=== PATIENT | male | born 1965 | race Caucasian/White ===

== ENCOUNTER 2017-08-11 17:24 | Emergency (ER) | payer SELFPAY ==
[2017-08-11] MEDS ORDERED: Metoclopramide HCl 10 MG/2 ML VIAL ONE (18:23)
[2017-08-11] MEDS ORDERED: diphenhydrAMINE 50 MG/ML VIAL ONE (18:23)
[2017-08-11] MEDS ORDERED: Ketorolac Tromethamine 30 MG/ML VIAL ONE (18:23)
[2017-08-11 18:30] LABS: #Lymphocytes 1.2 thou/uL (1.20-3.40); #Neutrophils 6.8 thou/uL (1.40-6.50); %Basophils 0.3 % (0.0-1.0); %Eosinophils 0.4 % (0.0-10.0); %Lymphocytes 13.6 % (21.0-51.0); %Monocytes 10.6 % (0.0-10.0); %Neutrophils 75.1 % (42.0-75.0); Hemoglobin 15.6 g/dL (14.0-18.0); Mean Corpuscular HGB CONC 33.6 g/dL (32.0-36.0); Mean Corpuscular Hemoglobin 28.3 pg (27.0-31.0); Mean Corpuscular Volume 84.3 fl (80.0-94.0); Mean Platelet Volume 6.8 fL (7.4-10.4); Platelet Count 274 thou/uL (130-400); RBC Distribution Width 13.4 % (11.5-14.5); Red Blood Cell (RBC) Count 5.51 mill/uL (4.70-6.10); White Blood Cell (WBC) Count 9.1 thou/uL (4.8-10.8)
[2017-08-11 18:52] LABS: ALT (SGPT) 25 U/L (8-55); AST (SGOT) 21 U/L (5-34); Albumin 3.7 g/dL (3.5-5.0); Alkaline Phosphatase 68 U/L (40-150); Anion Gap 15 mmol/L (10-20); BUN (Urea Nitrogen) 12 mg/dL (8.4-25.7); Bilirubin, Total 0.3 mg/dL (0.2-1.2); Calc. Creatinine Clearance 0 mL/min (70-130); Calcium 8.8 mg/dL (7.8-10.44); Carbon Dioxide 22 mmol/L (22-29); Chloride 104 mmol/L (98-107); Estimated GFR-MDRD 82; Globulin 2.4 g/dL (2.4-3.5); Glucose 121 mg/dL (70-105); Protein, Total 6.1 g/dL (6.0-8.3); Sodium 137 mmol/L (136-145)
--- NOTE | 2017-08-11 19:58 | RAD ---
PORTABLE CHEST: History: Fever. Flu symptoms. Comparison: None. FINDINGS: There are increased interstitial markings in the mid and lower lung ramos. This could represent an i nterstitial infiltrate, possibly viral, given history of flu symptoms. No confluent alveolar consolid ation. No effusion. Heart size is within normal range. IMPRESSION: Increased interstitial markings in the mid and lower lung. An interstitial inflammatory process canno t be excluded. POS: [facility]
--- NOTE | 2017-08-17 22:42 | EKG ---
Test Reason : Blood Pressure : / mmHG Vent. Rate : 112 BPM Atrial Rate : 112 BPM P-R Int : 124 ms QRS Dur : 102 ms QT Int : 344 ms P-R-T Axes : 047 086 004 degrees QTc Int : 469 ms Sinus tachycardia T wave abnormality, consider inferior ischemia Abnormal ECG Confirmed by TAIWO HINOJOSA ([id number]), editor managing director DORA MUNSON ([id number]) on 08/17/2017 10:41:10 PM Referred By: Confirmed By:TAIWO HINOJOSA
== END 2017-08-11 19:30 | disposition home or self-care (01) ==
LOC: ERS 17:24
DX: J11.1 Influenza due to unidentified influenza virus with other respiratory manifestations (principal); F17.210 Nicotine dependence, cigarettes, uncomplicated
CPT/HCPCS: 36415; 71045; 80053; 83735; 85025; 93005; 96361; 96374; 96375; J1200; J1885; J2765

== ENCOUNTER 2017-08-27 14:13 | Emergency (ER) | payer SELFPAY ==
--- NOTE | 2017-08-27 15:38 | RAD ---
LEFT KNEE 4 VIEWS: Date: 08/27/17 HISTORY: 52-year-old male with history of knee pain. IMPRESSION: No fracture, dislocation, or other significant acute osseous abnormality. POS: [facility]
[2017-08-27] MEDS ORDERED: Ketorolac Tromethamine 30 MG/ML VIAL ONE (15:44)
== END 2017-08-27 16:03 | disposition home or self-care (01) ==
LOC: ERS 14:13
DX: S83.92XA Sprain of unspecified site of left knee, initial encounter (principal); W08.XXXA Fall from other furniture, initial encounter; F17.210 Nicotine dependence, cigarettes, uncomplicated
CPT/HCPCS: 96372; J1885

== ENCOUNTER 2017-09-24 10:00 | Outpatient (CLI) | payer OTHER | END 2017-09-24 10:01 | disposition home or self-care (01) | LOC: BICMRI 10:00 | PROVIDERS: ATTEND Family Medicine | DX: S86.912A Strain of unspecified muscle(s) and tendon(s) at lower leg level, left leg, initial encounter (principal); M25.462 Effusion, left knee ==

== ENCOUNTER 2017-11-15 14:28 | Outpatient (CLI) | payer OTHER ==
[2017-11-15 15:12] LABS: #Eosinphils 0.2 thou/uL (0.0-0.7); #Lymphocytes 1.9 thou/uL (1.20-3.40); #Monocytes 0.5 thou/uL (0.11-0.59); #Neutrophils 5.1 thou/uL (1.40-6.50); %Basophils 0.5 % (0.0-1.0); %Lymphocytes 24.4 % (21.0-51.0); %Monocytes 5.9 % (0.0-10.0); %Neutrophils 67.2 % (42.0-75.0); Mean Corpuscular HGB CONC 34.4 g/dL (32.0-36.0); Mean Corpuscular Hemoglobin 28.6 pg (27.0-31.0); Mean Corpuscular Volume 83.1 fl (80.0-94.0); Mean Platelet Volume 7.4 fL (7.4-10.4); Platelet Count 289 thou/uL (130-400); RBC Distribution Width 13.3 % (11.5-14.5); White Blood Cell (WBC) Count 7.6 thou/uL (4.8-10.8)
[2017-11-15 15:28] LABS: Anion Gap 13 mmol/L (10-20); BUN (Urea Nitrogen) 11 mg/dL (8.4-25.7); Calc. Creatinine Clearance 0 mL/min (70-130); Calcium 9.2 mg/dL (7.8-10.44); Carbon Dioxide 23 mmol/L (22-29); Chloride 107 mmol/L (98-107); Estimated GFR-MDRD 84; Glucose 136 mg/dL (70-105); Potassium 4.4 mmol/L (3.5-5.1); Sodium 139 mmol/L (136-145)
--- NOTE | 2017-11-18 13:24 | EKG ---
Test Reason : Blood Pressure : / mmHG Vent. Rate : 090 BPM Atrial Rate : 090 BPM P-R Int : 134 ms QRS Dur : 100 ms QT Int : 354 ms P-R-T Axes : 045 086 010 degrees QTc Int : 433 ms Normal sinus rhythm Incomplete right bundle branch block Borderline ECG Confirmed by MAAGLI GIVENS ([id number]) on 11/18/2017 1:24:03 PM Referred By: IERO Confirmed By:MAGALI GIVENS
== END 2017-11-15 14:29 | disposition home or self-care (01) ==
LOC: LABBT 14:28
PROVIDERS: ATTEND Orthopaedic Surgery
DX: Z01.818 Encounter for other preprocedural examination (principal); M25.862 Other specified joint disorders, left knee
CPT/HCPCS: 80048; 85025; 93005; 93010

== ENCOUNTER 2017-11-18 05:52 | Day surgery (SDC) | payer OTHER ==
[2017-11-15 14:50] VITALS: BMI 37.4
[2017-11-18] MEDS ORDERED: Fentanyl 100 MCG/2 ML VIAL ONE (06:36)
[2017-11-18] MEDS ORDERED: PROPOFOL 20 ML ONE (06:51)
[2017-11-18] MEDS ORDERED: CEFAZOLIN/Water 2 GM/20 ML SYRINGE ONE (06:53)
--- NOTE | 2017-11-18 09:26 | OP ---
DATE OF PROCEDURE: 11/18/2017 PREOPERATIVE DIAGNOSIS: Left knee chondral loose body. POSTOPERATIVE DIAGNOSES: 1. Left knee chondral loose body. 2. 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 PROCEDURE: 1. Left knee arthroscopy with debridement and shaving of trochlea 2. Removal of chondral loose body greater than 1 cm from left knee SURGEON: Carrillo Arias M.D. HAND I THERMAL CUTTER: None. BLOOD LOSS: Minimal. COMPLICATIONS: None. ANESTHESIA: He had general anesthetic as well as a local knee block. DISPOSITION: He did go to the recovery room in stable condition. INDICATIONS: A 52-year-old male who comes in complaining of pain and inability to do range of motion of his knee secondary to a loose body found on MRI scan. At this time, surgery was decided upon for this problem. After all appropriate consent forms were explained and signed, Saud was taken to the operating room and at this time was given general anesthetic. Once local anesthesia was appropriate, the tourniquet was placed on the left thigh and the leg was then prepped and draped in the standard surgical fashion. The limb was then exsanguinated and the tourniquet was taken to 300 mmHg. An inferolateral portal was established and the scope was placed into the knee joint. A needle localization technique was then used to make a medial working portal. Diagnostic arthroscopy commenced in the notch. ACL and PCL probed and found to be intact. The medial compartment was then evaluated. Meniscus was intact. The femur and tibia were intact. While shaving in the medial compartment just to make sure there were no loose bodies underneath the medial meniscus, a large chondral body floated into the medial compartment. It measured 1.5 cm or so in diameter and this was eaten up by the shaver. We then went to the lateral compartment and found the same thing where the femur and tibia, and lateral meniscus were in good condition. The gutters were evaluated and were clean. The patellofemoral joint was then evaluated from both medial and lateral portal. The patella was in good condition. The trochlea; however, had a large area with some acute chondral injury with some large unstable chondral flaps still left. These were all taken down using a biter and shaver to a 90 degree wall. Once there was no more loose cartilage flaps we did go through the knee one more time making sure there were no more loose chondral bodies and there were none. The scope at this time was removed, knee was drained, and portals were closed with simple nylon stitch. Bulky sterile dressing was applied and the tourniquet let down, and the toes pinked up nicely. The patient was then awakened. He was taken to the recovery room in stable condition. All counts were correct at the end of the case and he did receive preoperative IV antibiotics. JAILENE
[2017-11-18] MEDS ORDERED: Lidocaine 2% w/Epinephrine 1:200K 20 ML VIAL ONE (14:56)
[2017-11-18] MEDS ORDERED: Bupivacaine HCl 0.5%/Epinephrine 1:200,000/PF 30 ml Vial ONE (14:56)
[2017-11-18] MEDS ORDERED: PROPOFOL 200 MG/20 ML VIAL ONE (15:27)
[2017-11-18] MEDS ORDERED: Lidocaine 1% PF 5 ML VIAL ONE (15:27)
== END 2017-11-18 10:05 | disposition home or self-care (01) ==
LOC: SDC 05:52
PROVIDERS: ATTEND Orthopaedic Surgery
PROC: 0SCD4ZZ Extirpation of Matter from Left Knee Joint, Percutaneous Endoscopic Approach (ICD-10-PCS; principal; 2017-11-18)
DX: M23.42 Loose body in knee, left knee (principal); M94.262 Chondromalacia, left knee
CPT/HCPCS: J0670; J2001; J2704; J3010

== ENCOUNTER 2018-02-17 09:20 | Inpatient (IN) | payer SELFPAY ==
[2018-02-17] MEDS ORDERED: Morphine 4 MG/ML VIAL ONE (09:58)
[2018-02-17] MEDS ORDERED: Nitroglycerin 2% Ointment 1 INCH/1 GM Packet ONE ×2 (09:58→12:51)
[2018-02-17 10:01] LABS: #Basophils 0.1 thou/uL (0.0-0.2); #Eosinphils 0.1 thou/uL (0.0-0.7); #Lymphocytes 1.6 thou/uL (1.20-3.40); #Monocytes 0.4 thou/uL (0.11-0.59); #Neutrophils 3.3 thou/uL (1.40-6.50); %Basophils 1.1 % (0.0-1.0); %Eosinophils 1.6 % (0.0-10.0); %Lymphocytes 30.4 % (21.0-51.0); %Monocytes 6.5 % (0.0-10.0); %Neutrophils 60.4 % (42.0-75.0); Hemoglobin 16.3 g/dL (14.0-18.0); Mean Corpuscular HGB CONC 34.9 g/dL (32.0-36.0); Mean Corpuscular Hemoglobin 28.9 pg (27.0-31.0); Mean Corpuscular Volume 82.8 fL (78.0-98.0); Mean Platelet Volume 8.3 fL (7.4-10.4); Platelet Count 206 thou/uL (130-400); RBC Distribution Width 13.9 % (11.5-14.5); Red Blood Cell (RBC) Count 5.63 mill/uL (4.70-6.10); White Blood Cell (WBC) Count 5.4 thou/uL (4.8-10.8)
[2018-02-17 10:24] LABS: Troponin I 0.035 ng/mL (< 0.028)
--- NOTE | 2018-02-17 10:36 | RAD ---
CHEST ONE VIEW: History: Chest pain, shortness of breath. Comparison: 08-11-17 FINDINGS: Mild increased to mediastinal fat, chronic finding. The interstitial opacities in both lung bases are again seen, similar. No pneumothorax. Cardiac silhouette and mediastinal contours are similar. IMPRESSION: Similar appearance of mild increased interstitial markings in both lung bases. This may reflect a rec urrent atypical infection versus scarring. POS: [facility]
[2018-02-17 11:38] LABS: Bilirubin Negative (Negative); Blood, Urine Negative (Negative); Glucose, Urine (Dipstick) Negative (Negative); Nitrite Negative (Negative); Protein, Urine (Dipstick) Negative (Neg-Trace); Urobilinogen 0.2 mg/dL (0.2-1.0)
[2018-02-17 11:40] LABS: Clarity Hazy (Clear)
[2018-02-17 11:46] LABS: Bacteria/HPF None Seen HPF (None Seen); Hyaline Casts/LPF 0-3 HYALINE CAST LPF (0-3 Hyaline); RBC/HPF 0-3 HPF (0-3); Squamous Epithelial None Seen HPF (0-3); WBC/HPF None Seen HPF (0-3)
[2018-02-17 11:59] LABS: Crystals/HPF None Seen HPF (Negative); Leukocyte Negative (Negative)
[2018-02-17] MEDS ORDERED: Enoxaparin Sodium 100 MG/ML SYRINGE ONE (12:04)
[2018-02-17 12:12] LABS: ALT (SGPT) 28 U/L (8-55); AST (SGOT) 28 U/L (5-34); Albumin 4.5 g/dL (3.5-5.0); Alkaline Phosphatase 84 U/L (40-150); Anion Gap 16 mmol/L (10-20); BUN (Urea Nitrogen) 12 mg/dL (8.4-25.7); Bilirubin, Total 0.6 mg/dL (0.2-1.2); CK (CPK) 512 U/L (30-200); Calc. Creatinine Clearance 0 mL/min (70-130); Calcium 9.8 mg/dL (7.8-10.44); Carbon Dioxide 20 mmol/L (22-29); Chloride 106 mmol/L (98-107); Estimated GFR-MDRD 85; Globulin 3.2 g/dL (2.4-3.5); Glucose 107 mg/dL (70-105); Lipase 19 U/L (8-78); Magnesium 2.2 mg/dL (1.6-2.6); Potassium 3.8 mmol/L (3.5-5.1); Protein, Total 7.7 g/dL (6.0-8.3); Sodium 138 mmol/L (136-145)
[2018-02-17] MEDS ORDERED: Nitroglycerin 0.4 MG TAB (25 Tab Bottle) SL PRN (12:16)
[2018-02-17] MEDS ORDERED: Acetaminophen 325 MG TAB PO PRN (12:16)
[2018-02-17] MEDS ORDERED: Ondansetron HCl/PF 4 MG/2 ML Vial IVP PRN (12:16)
[2018-02-17] MEDS ORDERED: Nitroglycerin 0.4 MG TAB (25 Tab Bottle) PO PRN (12:16)
[2018-02-17] MEDS ORDERED: Ondansetron ODT 4 MG TAB PO PRN (12:16)
[2018-02-17] MEDS ORDERED: Nitroglycerin 50 MG/250 ML BOT 0 ML ONE ×2 (13:12→13:25)
[2018-02-17] MEDS ORDERED: Nitroglycerin 50 MG/250 ML BOT 250 ML IVPB SCH (13:15)
[2018-02-17 13:28] LABS: CKMB 4.9 ng/mL (0-6.6)
[2018-02-17 13:30] LABS: Troponin I 0.559 ng/mL (< 0.028)
--- NOTE | 2018-02-17 13:37 | PDOC.FPRHP ---
- History of Present Illness Chief Complaint: chest pain History of Present Illness: 52 yo M w/o known PMH presents to ED for acute onset chest pain with associated sob and diaphoresis. Pt reports the chest pain is substernal with radiation to the left chest, described as sharp in nature and was walking at symptom onset. 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 Initial chest pain rated 10/10 and currently 2/10 after nitro, aspirin and morphine. Currently denies diaphoresis, sob and N/V. ED Course: Nitropaste 3in, nitro drip, Ther lovenox, asa 324 mg, 4mg morphine - Allergies/Adverse Reactions Allergies Allergy/AdvReac Type Severity Reaction Status Date / Time No Known Allergies Allergy Verified 11/15/17 14:49 - Home Medications Medication Instructions Recorded Confirmed Type Mdrive 1 cap PO QAM 11/15/17 11/15/17 History - History PMHx:No known PSHx: arthroscopy knee FHx:paternal HI and CABG, maternal HTN DMII Social: 25 pack year smoking history, occasional alcohol use, denies drug use - Review of Systems General: denies: fever/chills, night sweats Eyes: denies: vision changes ENT: denies: nasal congestion, rhinorrhea Respiratory: reports: shortness of breath, exercise intolerance. denies: cough , congestion Cardiovascular: reports: chest pain. denies: palpitation, edema Gastrointestinal: denies: nausea, vomiting, diarrhea, constipation, abdominal pain Genitourinary: denies: incontinence, dysuria Skin: denies: rashes, lesions Musculoskeletal: reports: arthritis/arthralgias. denies: pain, tenderness Neurological: denies: numbness, syncope, weakness Psychological: denies: anxiety - Vital signs BP: 118/77 HR: 90 RR: 18 Tmax: 98.6 Pox: 97% on RA Wt: 109Kg - Physical Exam Constitutional: awake, alert and oriented, other (Mildly distressed) HEENT: normocephalic and atraumatic, PERRLA, EOMI, conjunctiva clear, no scleral icterus, grossly normal vision, grossly normal hearing, MMM, oropharynx clear Neck: supple, trachea midline, no LAD, no JVD Chest: other (TTP) Heart: RRR, normal S1/S2, no murmurs/rubs/gallops, pulses present, no edema Lungs: CTAB, no respiratory distress, good air movement, no rales/rhonchi, no wheezing, no retractions Abdomen: soft, non-tender, bowel sounds present, no masses/distention Musculoskeletal: normal structure, normal tone, ROM grossly normal Neurological: no focal deficit Skin: capillary refill <2 seconds, no jaundice Heme/Lymphatic: no unusual bruising or bleeding, no purpura, no petechia Psychiatric: normal mood and affect FMR H&P: Results - Labs Result Diagrams: 02/17/18 09:53 02/17/18 10:13 Lab results: WBC 5.4 thou/uL (4.8-10.8) 02/17/18 09:53 Hgb 16.3 g/dL (14.0-18.0) 02/17/18 09:53 Hct 46.6 % (42.0-52.0) 02/17/18 09:53 MCV 82.8 fL (78.0-98.0) 02/17/18 09:53 Plt Count 206 thou/uL (130-400) 02/17/18 09:53 Neutrophils % 60.4 % (42.0-75.0) 02/17/18 09:53 Sodium 138 mmol/L (136-145) 02/17/18 10:13 Potassium 3.8 mmol/L (3.5-5.1) 02/17/18 10:13 Chloride 106 mmol/L (98-107) 02/17/18 10:13 Carbon Dioxide 20 mmol/L (22-29) L 02/17/18 10:13 BUN 12 mg/dL (8.4-25.7) 02/17/18 10:13 Creatinine 0.94 mg/dL (0.6-1.3) 02/17/18 10:13 Glucose 107 mg/dL (70-105) H 02/17/18 10:13 Calcium 9.8 mg/dL (7.8-10.44) 02/17/18 10:13 Total Bilirubin 0.6 mg/dL (0.2-1.2) 02/17/18 10:13 AST 28 U/L (5-34) 02/17/18 10:13 ALT 28 U/L (8-55) 02/17/18 10:13 Alkaline Phosphatase 84 U/L (40-150) 02/17/18 10:13 Creatine Kinase 512 U/L (30-200) H 02/17/18 10:13 CK-MB (CK-2) 4.9 ng/mL (0-6.6) 02/17/18 12:55 Serum Total Protein 7.7 g/dL (6.0-8.3) 02/17/18 10:13 Albumin 4.5 g/dL (3.5-5.0) 02/17/18 10:13 Lipase 19 U/L (8-78) 02/17/18 10:13 Urine Ketones Negative mg/dL (Negative) 02/17/18 10:54 Urine Blood Negative (Negative) 02/17/18 10:54 Urine Nitrite Negative (Negative) 02/17/18 10:54 Ur Leukocyte Esterase Negative (Negative) 02/17/18 10:54 Urine RBC 0-3 HPF (0-3) 02/17/18 10:54 Urine WBC None Seen HPF (0-3) 02/17/18 10:54 Ur Squamous Epith Cells None Seen HPF (0-3) 02/17/18 10:54 Urine Bacteria None Seen HPF (None Seen) 02/17/18 10:54 - EKG Interpretation EKG: Incomplete RBBB, unchanged from prior EKG, rate 90 - Radiology Interpretation Chest x-ray Status: report reviewed by me (Interstitial opacities, unchanged from prior. Atypical infiltrate vs chronic scarring.) FMR H&P: A/P - Problem List (1) Unstable angina Current Visit: Yes Status: Acute (2) NSTEMI (non-ST elevated myocardial infarction) Current Visit: Yes Status: Acute Code(s): I21.4 - NON-ST ELEVATION (NSTEMI) MYOCARDIAL INFARCTION - Plan 1) Unstable angina: admit ICU - typical chest pain with minimal exertion and continued active chest pain after nitro, morphine, asa, and lovenox - pt to be placed on nitro drip and titrated to cp relief as BP will allow - cardiology consulted and will plan for cardiac catheterization, appreciate recommendations - initial troponins were indeterminant; however, given timing expect increase on repeat troponins - check mag, phos, tsh - am FLP 2) NSTEMI: - cardiology consulted, appreciate recs - nitro drip as BP tolerates - trend enzymes - f/u with coreroom foundry laborer results and cards recs - daily asa 3) PPX: Ther lovenox and prn tums for DVT and GI ppx respectively 4) Code status: Pt wishes to be full code, discussed with pt at bedside PCP: City call admission, no PCP Disposition/LOS: Guarded, >/= 2 days FMR H&P: Upper Level - Plan Date/Time: 02/17/18 4316 I, [], have evaluated this patient and agree with findings/plan as outlined by university internship resident. Pertinent changes/additions are listed here. Attending Addendum - Attending Addendum Date/Time: 02/17/182057 I personally evaluated the patient and discussed the management with Dr. Augustin I agree with the History, Examination, Assessment and Plan documented above with any addition or exceptions noted below. 52 yo male presents for evaluation of midsternal chest pain. Patient without known CAD history presents with midsternal chest pain and diaphoresis with walking. Chest pain has persisted but improved with some interventions in ER. Cards consult pending. VS reviewed. Labs reviewed. EKG reviewed. Unstable angina/ACS: Continue to trend trop. Still in early evolution stage. Very concerning history. Has been started on all appropriate medications in ER - - morphine, O2, nitro, beta mandi, lovenox, ASA, statin. Cards consult pending for cath. Continue serial EKGs and trops until cards available. ABrayMD
[2018-02-17] MEDS ORDERED: Atorvastatin Calcium 40 MG TAB PO SCH (14:00)
[2018-02-17 14:20] LABS: Magnesium 2.3 mg/dL (1.6-2.6); Phosphorus 3.5 mg/dL (2.3-4.7)
[2018-02-17 14:34] LABS: Amphetamine Not Detected (NotDetected); Barbiturates Screen Not Detected (NotDetected); Benzodiazepine Screen Not Detected (NotDetected); Cocaine Metabolite Screen Not Detected (NotDetected); Medtox Control Line Valid? VALID (VALID); Medtox Reader # READER 1; Methadone Not Detected (NotDetected); Methamphetamine Not Detected (NotDetected); Opiate Screen Detected (NotDetected); Oxycodone Screen Not Detected (NotDetected); Phencyclidine (PCP) Not Detected (NotDetected); THC/Cannabinoid Screen Not Detected (NotDetected); Tricyclic Screen Not Detected (NotDetected)
--- NOTE | 2018-02-17 14:48 | CON ---
DATE OF CONSULTATION: 02/17/2018 CRITICAL CARE NOTE HISTORY OF PRESENT ILLNESS: The patient is a 52-year-old gentleman who presents for evaluation of chest discomfort. The patient has no previous cardiac history. He states that approximately 20 years ago, he was evaluated for chest discomfort. He has been completely free of chest pain until today. The patient developed midsternal chest that radiated into his left arm. He became markedly diaphoretic and short of breath. The patient states that his chest pain has continued, but is now less severe. PAST MEDICAL HISTORY: None. PAST SURGICAL HISTORY: He had knee surgery. SOCIAL HISTORY: Smokes a pack per day. FAMILY HISTORY: Positive family history of heart disease. ALLERGIES: No known drug allergies. MEDICATIONS: None. PHYSICAL EXAMINATION: GENERAL: This is an ill-appearing gentleman in acute distress with a blood pressure of 120/70. NECK: Showed no jugular distention. LUNGS: Clear to auscultation. HEART: Regular rate and rhythm, normal S1, S2. ABDOMEN: Distended. EXTREMITIES: Show no edema. VASCULAR: Radial pulses are 2+, femoral pulses are diminished. LABORATORY DATA: His sodium was 130, potassium 3.8, chloride 106, bicarbonate 20, BUN 12, creatinine is 0.94. His CPK was 512. Troponin was 0.035. His D- dimer was 0.35. White blood count 5.4, hemoglobin 16.3, hematocrit 46.6, platelets are 206. EKG revealed abnormal sinus rhythm with a right bundle branch block, no acute ST-T wave changes. IMPRESSION: 1. Unstable angina. 2. Tobacco abuse. 3. Obesity. PLAN: This gentleman presents with unstable angina. The patient will be started on IV nitroglycerin. He has received aspirin and Lovenox. We will start beta mandi therapy and lipid-lowering medication. With the patient's risk factors, we would recommend proceeding with a cardiac catheterization during this hospitalization. We will follow this patient with you through the hospitalization. Critical care time spent with the patient was 1 hour. JAILENE
[2018-02-17 15:17] VITALS: BMI 38.2
[2018-02-17] MEDS: Sodium Chloride 0.9% 1,000 ML IV SCH ×3 (15:34→22:21)
[2018-02-17] MEDS: Metoprolol Tartrate 25 MG TAB PO SCH ×2 (15:59→22:26)
[2018-02-17] MEDS ORDERED: Communication Order-Pharmacy FS SCH (16:00)
[2018-02-17] MEDS ORDERED: Nitroglycerin 50 MG/250 ML BOT 250 ML ONE (17:25)
[2018-02-17 20:37] LABS: Critical Call Chem Troponin I RESULT DECREASING; Troponin I 0.408 ng/mL (< 0.028)
[2018-02-17] MEDS ORDERED: Enoxaparin Sodium 120 MG/0.8 ML SYRINGE SC SCH (21:00)
[2018-02-17] MEDS: Famotidine/PF 20 mg/2ml Vial SLOW IVP SCH (21:52)
[2018-02-18 05:32] LABS: #Eosinphils 0.1 thou/uL (0.0-0.7); #Lymphocytes 1.4 thou/uL (1.20-3.40); #Monocytes 0.7 thou/uL (0.11-0.59); #Neutrophils 8.2 thou/uL (1.40-6.50); %Basophils 0.4 % (0.0-1.0); %Eosinophils 0.7 % (0.0-10.0); %Lymphocytes 13.6 % (21.0-51.0); %Monocytes 6.6 % (0.0-10.0); %Neutrophils 78.7 % (42.0-75.0); Hemoglobin 14.8 g/dL (14.0-18.0); Mean Corpuscular HGB CONC 34.7 g/dL (32.0-36.0); Mean Corpuscular Hemoglobin 29.1 pg (27.0-31.0); Mean Corpuscular Volume 83.8 fL (78.0-98.0); Mean Platelet Volume 7.4 fL (7.4-10.4); Platelet Count 222 thou/uL (130-400); RBC Distribution Width 13.5 % (11.5-14.5); Red Blood Cell (RBC) Count 5.09 mill/uL (4.70-6.10); White Blood Cell (WBC) Count 10.5 thou/uL (4.8-10.8)
[2018-02-18 05:45] LABS: ALT (SGPT) 25 U/L (8-55); AST (SGOT) 21 U/L (5-34); Albumin 3.9 g/dL (3.5-5.0); Alkaline Phosphatase 74 U/L (40-150); Anion Gap 11 mmol/L (10-20); BUN (Urea Nitrogen) 13 mg/dL (8.4-25.7); Bilirubin, Total 0.5 mg/dL (0.2-1.2); Calc. Creatinine Clearance 149 mL/min (70-130); Carbon Dioxide 24 mmol/L (22-29); Chloride 109 mmol/L (98-107); Cholesterol 179 mg/dl (< 200 Desired); Estimated GFR-MDRD 87; Globulin 2.7 g/dL (2.4-3.5); Glucose 101 mg/dL (70-105); HDL Cholesterol 30 mg/dL (>60 Neg Risk); LDL Cholesterol, Calculated 96 mg/dL; Potassium 4.5 mmol/L (3.5-5.1); Protein, Total 6.6 g/dL (6.0-8.3); Sodium 139 mmol/L (136-145); Triglycerides 265 mg/dL (Less than 150)
[2018-02-18] MEDS: Metoprolol Tartrate 25 MG TAB PO SCH ×2 (05:49→20:35)
[2018-02-18] MEDS: Sodium Chloride 0.9% 1,000 ML IV SCH (05:50)
--- NOTE | 2018-02-18 06:35 | PDOC.FM ---
- Subjective Subjective: This morning patient states he is doing well overall. Still had chest pain when nitro drip was weaned last night so that is still running. He did receive morphine for chest pain 1 time last night. He denies SOB or diaphoresis. He has a mild headache, likely from the nitro but he says it is bearable. Also complains of mild nausea otherwise doing well. - Objective Vital Signs & Weight: Vital Signs (12 hours) Temp Pulse Resp Pulse Ox 02/18/18 04:00 98.4 F 02/18/18 00:00 98.4 F 02/17/18 22:41 93 L 02/17/18 20:00 98.6 F 81 27 H 95 Weight Weight 110.7 kg Most Recent Monitor Data Heart Rate from ECG 86 NIBP 99/71 NIBP BP-Mean 88 Respiration from ECG 10 SpO2 95 I&O: 02/16/18 02/17/18 02/18/18 06:59 06:59 06:59 Intake Total 2654.4 Output Total 2425 Balance 229.4 Result Diagrams: 02/18/18 05:14 02/18/18 05:14 <Royal Epps - Last Filed: 02/18/18 06:35> - Objective Vital Signs & Weight: Vital Signs (12 hours) Temp Pulse Resp Pulse Ox 02/18/18 08:00 98.8 F 84 20 02/18/18 07:08 95 02/18/18 07:00 98.8 F 02/18/18 04:00 98.4 F Weight Weight 110.7 kg Most Recent Monitor Data Heart Rate from ECG 75 NIBP 135/67 NIBP BP-Mean 95 Respiration from ECG 20 SpO2 97 I&O: 02/17/18 02/18/18 02/19/18 06:59 06:59 06:59 Intake Total 2654.4 320 Output Total 2425 750 Balance 229.4 -430 Result Diagrams: 02/18/18 05:14 02/18/18 05:14 <Shahbaz Medrano - Last Filed: 02/18/18 13:19> Phys Exam - Physical Examination Constitutional: NAD HEENT: PERRLA, moist MMs Respiratory: no wheezing, clear to auscultation bilateral Cardiovascular: RRR, no significant murmur, no rub Gastrointestinal: soft, non-tender, no distention, positive bowel sounds Musculoskeletal: no edema, pulses present Neurological: non-focal, moves all 4 limbs Psychiatric: normal affect Skin: no rash, cap refill <2 seconds <Royal Epps - Last Filed: 02/18/18 06:35> Dx/Plan (1) NSTEMI (non-ST elevated myocardial infarction) Code(s): I21.4 - NON-ST ELEVATION (NSTEMI) MYOCARDIAL INFARCTION Status: Acute (2) Unstable angina Status: Acute (3) Borderline hyperlipidemia Code(s): E78.5 - HYPERLIPIDEMIA, UNSPECIFIED Status: Acute - Plan Plan: # Unstable Angina - still having chest pain overnight when weaned off drip, received morphine one time - Cath this AM - will stay in the unit for now 2/2 needing drip, plan to transfer to tele this PM pending results of cath # NSTEMI - trop 0.055-> 0.559 -> .408 - daily asa - cath today # 7.7% ASCVD risk - smoker, counseled cessation - atorvastatin ppx: tums prn, lovenox after cath fluids: NS 100 ml diet: npo code: full PCP: CC Dispo: pending cath results <Royal Epps - Last Filed: 02/18/18 06:35> Attending Addendum - Attending Addendum Date/Time: 02/18/18 7715 I personally evaluated the patient and discussed the management with Dr. Epps I agree with the History, Examination, Assessment and Plan documented above with any addition or exceptions noted below. Patient seen back in ICU post Cath this AM. Patient chest pain free with report stent placed to LAD 90% blockage. Patient stable at this time OK to step down to telemetry when cleared by Cardiology. <Shahbaz Medrano - Last Filed: 02/18/18 13:19>
[2018-02-18] MEDS ORDERED: Sodium Chloride 0.9% 1,000 ML IV SCH ×2 (06:45→09:33)
[2018-02-18] MEDS ORDERED: Midazolam HCl 2 mg/2 ml Vial ONE (08:22)
[2018-02-18] MEDS ORDERED: Aspirin 325 MG TAB PO SCH (09:00)
[2018-02-18] MEDS ORDERED: Bivalirudin 250 MG VIAL ONE (09:03)
[2018-02-18] MEDS ORDERED: Clopidogrel Bisulfate 300 MG TAB ONE (09:12)
[2018-02-18] MEDS ORDERED: Fentanyl 100 MCG/2 ML VIAL ONE (09:13)
[2018-02-18] MEDS ORDERED: Nitroglycerin 50 MG/250 ML BOT 250 ML ONE (09:14)
[2018-02-18] MEDS ORDERED: Adenosine 6 MG/2 ML VIAL ONE ×2 (09:14→09:27)
[2018-02-18] MEDS ORDERED: Nitroglycerin 100MG/250ML BOT 250 ML ONE (09:14)
[2018-02-18] MEDS: Famotidine/PF 20 mg/2ml Vial SLOW IVP SCH ×2 (12:49→20:36)
[2018-02-18] MEDS ORDERED: Iopamidol 370 76% 50 ML VIAL FS ONE (13:16)
[2018-02-18] MEDS ORDERED: Iopamidol 370 76% 100 ML VIAL ONE (13:16)
[2018-02-18] MEDS ORDERED: ALPRAZolam 0.5 MG TAB PO SCH (13:45)
[2018-02-18] MEDS: Nicotine 14 MG PATCH TD SCH (14:38)
--- NOTE | 2018-02-18 19:56 | CCL ---
PROCEDURE: Drug eluting-stent placement in the proximal to mid LAD. INDICATION: Non-STEMI. The patient remained in the cardiac laboratory equipment installer after diagnostic catheterization by . The 5-Central [place] sheath in the right femoral artery was exchanged over a wire for a 6-[place] sheath. Ang iomax bolus and drip were started. A 6-Central [place] left 4 guide catheter was inserted. A floppy choice w bel was advanced into the apical LAD. The area was predilated with Emerge 3.0 x 15 mm balloon. This balloon was removed and Synergy 4.0 x 20 mm drug-eluting stent was inserted and deployed. The proxi mal portion was inflated to high pressure. After this, there was LIZETH 1 flow distal to the stent, al though the vessel distal to the stent did not show any evidence of dissection. Intracoronary nitrogl ycerin 200 mcg as well as adenosine 30 mcg were given. There was then LIZETH 3 flow in the vessel with out evidence of dissection. Patient received 600 mg of Plavix during the procedure. Sheath was then sutured in place. The patient was transferred to the PACU. RESULTS: Initial proximal LAD lesion was 90% and final lesion was 0%. IMPRESSION: 1. One vessel coronary artery disease (LAD). 2. Successful drug-eluting stent placement in the proximal to mid LAD.
[2018-02-18] MEDS ORDERED: Enoxaparin Sodium 30 MG/0.3 ML SYRINGE SC SCH (21:00)
[2018-02-18] MEDS ORDERED: Atorvastatin Calcium 40 MG TAB PO SCH (21:00)
[2018-02-19 06:34] LABS: #Eosinphils 0.1 thou/uL (0.0-0.7); #Lymphocytes 1.9 thou/uL (1.20-3.40); #Monocytes 0.5 thou/uL (0.11-0.59); #Neutrophils 5.2 thou/uL (1.40-6.50); %Basophils 0.5 % (0.0-1.0); %Eosinophils 1.5 % (0.0-10.0); %Lymphocytes 24.2 % (21.0-51.0); %Neutrophils 67.7 % (42.0-75.0); Hemoglobin 15.2 g/dL (14.0-18.0); Mean Corpuscular HGB CONC 35.1 g/dL (32.0-36.0); Mean Corpuscular Hemoglobin 29.3 pg (27.0-31.0); Mean Corpuscular Volume 83.6 fL (78.0-98.0); Mean Platelet Volume 7.4 fL (7.4-10.4); Platelet Count 205 thou/uL (130-400); RBC Distribution Width 13.4 % (11.5-14.5); Red Blood Cell (RBC) Count 5.17 mill/uL (4.70-6.10); White Blood Cell (WBC) Count 7.7 thou/uL (4.8-10.8)
--- NOTE | 2018-02-19 06:36 | PDOC.FM ---
- Subjective Subjective: This morning the patient states he slept well overnight. Denies chest pain or shortness of breath. He did have one episode of chest pain overnight for which he received morphine. He states this occurred after walking the halls, he says the pain was different from the chest pain when he came in. He denies N/V/D, states he is looking forward to going home. - Objective MAR Reviewed: Yes Vital Signs & Weight: Vital Signs (12 hours) Temp Pulse Resp BP Pulse Ox 02/19/18 04:00 98.6 F 91 13 109/58 L 97 02/19/18 00:00 98.5 F 80 22 H 137/76 95 02/18/18 20:00 98.5 F 80 22 H 133/60 96 02/18/18 19:56 98.0 F 91 17 133/60 96 02/18/18 19:01 96 Weight Weight 103.419 kg Most Recent Monitor Data Heart Rate from ECG 86 NIBP 157/70 NIBP BP-Mean 89 Respiration from ECG 22 SpO2 94 I&O: 02/17/18 02/18/18 02/19/18 06:59 06:59 06:59 Intake Total 2654.4 2152 Output Total 2425 2310 Balance 229.4 -158 Result Diagrams: 02/19/18 05:47 02/18/18 05:14 EKG Reviewed by me: Yes ([address] elevation on lead II, improvement from 02/18) <Royal Epps - Last Filed: 02/19/18 06:35> - Objective Vital Signs & Weight: Vital Signs (12 hours) Temp Pulse Resp BP BP Pulse Ox 02/19/18 08:00 98.2 F 85 18 97 02/19/18 07:35 98.2 F 85 18 136/88 95 02/19/18 04:00 98.6 F 91 13 109/58 L 97 02/19/18 00:00 98.5 F 80 22 H 137/76 95 Weight Weight 103.419 kg Most Recent Monitor Data Heart Rate from ECG 86 NIBP 157/70 NIBP BP-Mean 89 Respiration from ECG 22 SpO2 94 I&O: 02/18/18 02/19/18 02/20/18 06:59 06:59 06:59 Intake Total 2654.4 2152 Output Total 2425 2310 Balance 229.4 -158 Result Diagrams: 02/19/18 05:47 02/19/18 05:47 <Shahbaz Medrano - Last Filed: 02/19/18 11:48> Phys Exam - Physical Examination Constitutional: NAD HEENT: PERRLA, moist MMs Neck: no nodes Respiratory: no wheezing, clear to auscultation bilateral Cardiovascular: RRR, no significant murmur Gastrointestinal: soft, non-tender, no distention, positive bowel sounds Musculoskeletal: no edema, pulses present Neurological: non-focal, moves all 4 limbs Psychiatric: normal affect, A&O x 3 Skin: no rash, cap refill <2 seconds <Royal Epps - Last Filed: 02/19/18 06:35> Dx/Plan (1) NSTEMI (non-ST elevated myocardial infarction) Code(s): I21.4 - NON-ST ELEVATION (NSTEMI) MYOCARDIAL INFARCTION Status: Acute (2) Unstable angina Status: Acute (3) Borderline hyperlipidemia Code(s): E78.5 - HYPERLIPIDEMIA, UNSPECIFIED Status: Acute - Plan Plan: # Unstable Angina -cath w/ drug-eluding stent, 90% LAD occlusion -no chest pain currently - follow-up with cardiology # NSTEMI - trop 0.055-> 0.559 -> .408 - daily asa # 7.7% ASCVD risk - smoker, counseled cessation - atorvastatin ppx: tums prn, lovenox after cath fluids: NS 100 ml diet: regular code: full PCP: CC Dispo: d/c this AM pending Cardiology recs <Royal Epps - Last Filed: 02/19/18 06:35> Attending Addendum - Attending Addendum Date/Time: 02/19/18 [id number] I personally evaluated the patient and discussed the management with Dr. Epps I agree with the History, Examination, Assessment and Plan documented above with any addition or exceptions noted below.Patient doing well should be stable for D/C discussed: cardiac rehab, NRP for smoking cessation, Dual antiplatelet therapy, BB, and statin . D/C pending Ordnance Handler approval. <Shahbaz Medrano - Last Filed: 02/19/18 11:48>
[2018-02-19 06:57] LABS: ALT (SGPT) 24 U/L (8-55); AST (SGOT) 30 U/L (5-34); Albumin 4.1 g/dL (3.5-5.0); Alkaline Phosphatase 75 U/L (40-150); Anion Gap 14 mmol/L (10-20); BUN (Urea Nitrogen) 12 mg/dL (8.4-25.7); Bilirubin, Total 0.5 mg/dL (0.2-1.2); Calc. Creatinine Clearance 128 mL/min (70-130); Calcium 9.3 mg/dL (7.8-10.44); Carbon Dioxide 22 mmol/L (22-29); Chloride 107 mmol/L (98-107); Estimated GFR-MDRD 79; Glucose 144 mg/dL (70-105); Potassium 3.7 mmol/L (3.5-5.1); Protein, Total 7.1 g/dL (6.0-8.3); Sodium 139 mmol/L (136-145)
[2018-02-19] MEDS ORDERED: Aspirin 325 MG TAB PO SCH (08:37)
[2018-02-19] MEDS ORDERED: Atorvastatin Calcium 40 MG TAB PO SCH ×2 (08:41→21:00)
[2018-02-19] MEDS ORDERED: Clopidogrel Bisulfate 75 MG TAB PO SCH (09:00)
[2018-02-19] MEDS: Nicotine 14 MG PATCH TD SCH ×2 (09:13→10:57)
[2018-02-19] MEDS: Famotidine/PF 20 mg/2ml Vial SLOW IVP SCH (09:43)
[2018-02-19 12:27] VITALS: BP 136/87; TEMP 98.8
--- NOTE | 2018-02-19 13:07 | DIS-2 ---
DATE OF ADMISSION: 02/17/2018 DATE OF DISCHARGE: 02/19/2018 RESIDENT: Dr. Royal Epps ADMITTING ATTENDING: Dr. Penny Rhodes DISCHARGE ATTENDING: Dr. Shahbaz Medrano CONSULTATIONS: Cardiology, Dr. Ellison. PROCEDURES: PCI, drug-eluting stent to the LAD, found a 90% lesion at the LAD. ADMISSION DIAGNOSES: 1. Unstable angina. 2. Xdm-YT-[id number] elevation myocardial infarction. DISCHARGE DIAGNOSES: 1. Unstable angina. 2. Zpb-YH-ikkjcee elevation myocardial infarction. 3. Arteriosclerotic cardiovascular disease risk high. 4. Hyperlipidemia. HISTORY OF PRESENT ILLNESS/HOSPITAL COURSE: This is a 52-year-old male without significant past medi tyler history presenting to the ED for acute onset chest pain, shortness of breath and diaphoresis. He described the pain as substernal, radiating to left side of the chest, described as sharp and 10/10 at onset, relieved with nitro and morphine. Upon admission, the chest pain was still present at 2/10 and so he was started on a nitro drip. Ultimately, he had a cardiac catheterization which found a 90% lesion to the LAD and was stented with a drug-eluting stent. His chest pain was much improved after this. He denied shortness of breath o r chest pain at the time of discharge. He was very mobile in the halls and stated he had no chest pa in. DISPOSITION: Stable. DISCHARGE INSTRUCTIONS: 1. Location: Home. 2. Diet: Heart healthy. 3. Activity: As tolerated. 4. Followup: Follow up with PCP in 2-3 days, Dr. Ellison 2-4 weeks. 5. Discussed smoking cessation extensively with the patient, please follow up on this. 6. Gave the patient information for cardiac rehab. DISCHARGE MEDICATIONS: Atorvastatin 80 mg, metoprolol succinate 25 mg, aspirin 81 mg, clopidogrel 75 mg, nitroglycerin 0.4 mg sublingual p.r.n. as needed.
== END 2018-02-19 12:27 | disposition home or self-care (01) | DRG 247 ==
LOC: ERS 09:20 → ERHOLD 12:50 → CCU 15:02 → 2NO 02-18 19:39
PROVIDERS: ADMIT Family Medicine; ATTEND Family Medicine
PROC: 027034Z Dilation of Coronary Artery, One Artery with Drug-eluting Intraluminal Device, Percutaneous Approach (ICD-10-PCS; principal; 2018-02-18)
PROC: 4A023N7 Measurement of Cardiac Sampling and Pressure, Left Heart, Percutaneous Approach (ICD-10-PCS; 2018-02-18)
PROC: B2111ZZ Fluoroscopy of Multiple Coronary Arteries using Low Osmolar Contrast (ICD-10-PCS; 2018-02-18)
PROC: B2151ZZ Fluoroscopy of Left Heart using Low Osmolar Contrast (ICD-10-PCS; 2018-02-18)
DX: I21.4 Non-ST elevation (NSTEMI) myocardial infarction (principal); I25.110 Atherosclerotic heart disease of native coronary artery with unstable angina pectoris; F17.210 Nicotine dependence, cigarettes, uncomplicated; E78.5 Hyperlipidemia, unspecified; Z83.3 Family history of diabetes mellitus; Z82.49 Family history of ischemic heart disease and other diseases of the circulatory system
CPT/HCPCS: 36415; 36416; 71045; 80053; 80061; 80306; 81003; 82553; 83690; 83735; 84100; 84443; 84484; 85025; 85379; 92928; 93005; 93010; 93306; 93458; 93798; 94760; 96365; 96375; 99152; 99153; A4216; C1725; C1769; C1874; C1887; C9600; J0153; J0583; J1644; J1650; J2250; J2270; J3010; S0028

== ENCOUNTER 2018-02-20 12:15 | Observation (INO) | payer SELFPAY ==
[~2018-02-20 12:15] MED LIST: ISOVUE-370 76%-LOCM 1 ML ONE
[2018-02-20 12:40] LABS: #Eosinphils 0.1 thou/uL (0.0-0.7); #Lymphocytes 1.8 thou/uL (1.20-3.40); #Monocytes 0.9 thou/uL (0.11-0.59); %Basophils 0.5 % (0.0-1.0); %Eosinophils 1.5 % (0.0-10.0); %Lymphocytes 22.3 % (21.0-51.0); %Monocytes 11.7 % (0.0-10.0); %Neutrophils 63.9 % (42.0-75.0); Hemoglobin 16.3 g/dL (14.0-18.0); Mean Corpuscular HGB CONC 33.8 g/dL (32.0-36.0); Mean Corpuscular Hemoglobin 28.5 pg (27.0-31.0); Mean Corpuscular Volume 84.6 fL (78.0-98.0); Mean Platelet Volume 7.6 fL (7.4-10.4); Platelet Count 238 thou/uL (130-400); RBC Distribution Width 13.6 % (11.5-14.5); White Blood Cell (WBC) Count 7.9 thou/uL (4.8-10.8)
[2018-02-20 12:46] LABS: PTT 28.4 SEC (22.9-36.1)
[2018-02-20 13:01] LABS: ALT (SGPT) 30 U/L (8-55); AST (SGOT) 29 U/L (5-34); Albumin 4.6 g/dL (3.5-5.0); Alkaline Phosphatase 94 U/L (40-150); Anion Gap 16 mmol/L (10-20); BUN (Urea Nitrogen) 16 mg/dL (8.4-25.7); Bilirubin, Total 0.7 mg/dL (0.2-1.2); CK (CPK) 354 U/L (30-200); Calc. Creatinine Clearance 0 mL/min (70-130); Calcium 10.1 mg/dL (7.8-10.44); Carbon Dioxide 20 mmol/L (22-29); Chloride 107 mmol/L (98-107); Estimated GFR-MDRD 76; Globulin 3.3 g/dL (2.4-3.5); Glucose 84 mg/dL (70-105); Protein, Total 7.9 g/dL (6.0-8.3); Sodium 139 mmol/L (136-145)
--- NOTE | 2018-02-20 13:01 | RAD ---
PORTABLE CHEST: Date: 02/20/18 PROVIDED CLINICAL HISTORY: Shortness of breath. FINDINGS: Comparison with 02/17/18. Cardiac silhouette appears enlarged. Pulmonary vasculature appears prominent. No focal consolidation, pleural fluid, or pneumothorax apparent. IMPRESSION: Cardiomegaly and findings suggesting congestive failure. Follow-up is recommended. POS: FAN
[2018-02-20 13:06] LABS: CKMB 3.7 ng/mL (0-6.6)
[2018-02-20 13:13] LABS: Troponin I 0.891 ng/mL (< 0.028)
[2018-02-20] MEDS ORDERED: Nitroglycerin 2% Ointment 1 INCH/1 GM Packet ONE (13:24)
[2018-02-20] MEDS ORDERED: Nitroglycerin 0.4 MG TAB (25 Tab Bottle) ONE (13:24)
--- NOTE | 2018-02-20 14:32 | PDOC.FPRHP ---
- History of Present Illness Chief Complaint: Chest pain History of Present Illness: This is a 52 yo male who was discharged on 02/17 after a successful PCI and placement of a Drug eluding stent in the proximal to mid LAD that was 90% occluded. He states that he began having chest pain at around 1100 this morning. He state that the pain was a 3/10 pain and constant. Nothing made his pain better or worse. In the ED, he received nitro which relieved his pain. Pt. states that he filled and took is medicine this morning. He took 2 aspirin this morning. - Allergies/Adverse Reactions Allergies Allergy/AdvReac Type Severity Reaction Status Date / Time No Known Allergies Allergy Verified 11/15/17 14:49 - Home Medications Medication Instructions Recorded Confirmed Type Aspirin [Aspirin Chewable Tablet] 81 mg PO DAILY 30 Days #30 tab 02/19/18 Rx Atorvastatin Calcium 80 mg PO DAILY 30 Days #30 tablet 02/19/18 02/20/18 Rx Clopidogrel Bisulfate [Plavix] 75 mg PO DAILY 30 Days #30 tab 02/19/18 02/20/18 Rx Metoprolol Succinate 25 mg PO DAILY 30 Days #30 02/19/18 02/20/18 Rx tab.er.24h Nicotine [Nicoderm CQ] 14 mg TD Q24HR 30 Days #30 patch 02/19/18 02/20/18 Rx Nitroglycerin 0.4 mg SL PRN PRN 10 Days #15 02/19/18 02/20/18 Rx tab.subl Naproxen 250 mg PO Q8HR #60 tablet 02/21/18 Rx - History PMHx: History of NSTEMI 02/16/18 PSHx: Stent placed in 02/16/18 FHx: Maternal HTN, DMII, paternal Social: - Vital signs BP: [120/65] HR: [91] RR: [16] Tmax: [98.1] Pox: [97]% on [RA] Wt: [109] - Physical Exam Constitutional: NAD, awake, alert and oriented, well developed HEENT: normocephalic and atraumatic, PERRLA, EOMI Neck: supple, FROM, no JVD Chest: no-tender to palpation, no lesions Heart: RRR, normal S1/S2, no murmurs/rubs/gallops, pulses present, no edema Lungs: good air movement, no retractions -Lungs: Crackles heard on the right lung ramos Abdomen: soft, non-tender, bowel sounds present Musculoskeletal: normal structure, ROM grossly normal Neurological: CN II-XII intact, normal sensation Skin: good turgor, capillary refill <2 seconds Heme/Lymphatic: no unusual bruising or bleeding, no purpura Psychiatric: normal mood and affect, good judgment and insight, intact recent and remote memory FMR H&P: Results - Labs Result Diagrams: 02/21/18 04:17 02/21/18 04:17 Lab results: WBC 7.9 thou/uL (4.8-10.8) 02/20/18 12:31 Hgb 16.3 g/dL (14.0-18.0) 02/20/18 12:31 Hct 48.2 % (42.0-52.0) 02/20/18 12:31 MCV 84.6 fL (78.0-98.0) 02/20/18 12:31 Plt Count 238 thou/uL (130-400) 02/20/18 12:31 Neutrophils % 63.9 % (42.0-75.0) 02/20/18 12:31 Sodium 139 mmol/L (136-145) 02/20/18 12:31 Potassium 4.0 mmol/L (3.5-5.1) 02/20/18 12:31 Chloride 107 mmol/L (98-107) 02/20/18 12:31 Carbon Dioxide 20 mmol/L (22-29) L 02/20/18 12:31 BUN 16 mg/dL (8.4-25.7) 02/20/18 12:31 Creatinine 1.03 mg/dL (0.6-1.3) 02/20/18 12:31 Glucose 84 mg/dL (70-105) 02/20/18 12:31 Calcium 10.1 mg/dL (7.8-10.44) 02/20/18 12:31 Total Bilirubin 0.7 mg/dL (0.2-1.2) 02/20/18 12:31 AST 29 U/L (5-34) 02/20/18 12:31 ALT 30 U/L (8-55) 02/20/18 12:31 Alkaline Phosphatase 94 U/L (40-150) 02/20/18 12:31 Creatine Kinase 354 U/L (30-200) H 02/20/18 12:31 CK-MB (CK-2) 3.7 ng/mL (0-6.6) 02/20/18 12:31 B-Natriuretic Peptide 42.7 pg/mL (0-100) 02/20/18 12:31 Serum Total Protein 7.9 g/dL (6.0-8.3) 02/20/18 12:31 Albumin 4.6 g/dL (3.5-5.0) 02/20/18 12:31 - EKG Interpretation EKG: EKG was NSR, potential S1Q3T3 - Radiology Interpretation Chest x-ray Status: report reviewed by me (Cardiomegaly and findings suggestive of congestive failure) FMR H&P: A/P - Problem List (1) NSTEMI (non-ST elevated myocardial infarction) Status: Acute Code(s): I21.4 - NON-ST ELEVATION (NSTEMI) MYOCARDIAL INFARCTION - Plan This is a 52 yo male with a resent stent placement in the proximal LAD NSTEMI -1st troponin was 0.89, up from previous admission on 0.6 on 02/17/18. Cardiology has been consulted. A CTA has been done to rule out PE, results pending. He has been started on therapeutic lovenox. We are trending cardiac profile enzymes and EKGs. We are going to get an Echo and start him on LR 100ml/ hr Code: FULL Prophylaxis: none Family: none at bedside Disposition: home in 1-2 days Disposition/LOS: Stable: </= 2 days FMR H&P: Upper Level - Pertinent history 52 yo M w/ PMH of CAD s/p LAD drug eluding stent placement on 02/18 presents for acute return of CP that is similar in quality and location as previous; however , less severe. Pts pain completely resolved with Nitro. Currently denies CP. Reported associated SOB, nausea and chills. - Pertinent findings EKG: NO STEMI or T wave changes in consecutive leads, rate 83, inverted T wave lead III CXR: Enlarged cardiac silhouette CTA: No PE/ NAD PE: General: Mildly distressed, obese Respiratory: Normal effort, no wheezes, rhales or rhonchi CV: RRR, No M/R/G, peripheral pulses 2+ ABD: Soft NT, normoactive BS - Plan Date/Time: 02/20/18 1431 I, Freedom Augustin, , have evaluated this patient and agree with findings/ plan as outlined by international account manager resident. Pertinent changes/additions are listed here. 1) NSTEMI: Troponin of .89 with previous dc troponin of .4; This could possibly be seconday to troponin leak but re-embolization of cardiac stent is of higher concern, pts CK MB WNL - will treat for NSTEMI with constinued anti-platelet therapy and add Th Lovenox @ 1mg/kg BID - consider PE, vs post CA complication CTA results pending - trend cardiac enzymes - repeat echo in am - nitro PRN - NPO w/ IVF LR @ 100 - consult cards, appreciate recs 2) HTN: - cont home meds 3) Code status: Full 4) PPX: Therapeutic lovenox and tums prn for dvt and GI ppx respectively PCP: Royal Epps MD Attending Addendum - Attending Addendum Date/Time: 02/20/18 1636 I personally evaluated the patient and discussed the management with Dr. Bangura and Dr. Augustin I agree with the History, Examination, Assessment and Plan documented above with any addition or exceptions noted below. 52 yo male with recent history of unstable angina s/p LAD DE-stent placement presents for evaluation of angina. Patient reports improved with nitro. Pain not as significant as previous angina. Located midsternum. Associated with chills today and worse with deep inspiration. Has been taking medication as prescribed. VS reviewed. CTA of chest pending. No EKG changes noted. Trop elevated. Cardiology consulted. Likely complications related to recent cardiac intervention. Less likely occlusion. Unsure if stent was placed over any diseased diagonal branch. Monitor on tele. ECHO ordered. Continue cardiac meds. Woodrow
--- NOTE | 2018-02-20 15:05 | CT ---
CT ANGIOGRAM CHEST WITH IV CONTRAST AND 3D MIP RECONSTRUCTIONS: Date: 02-20-18 Provided Clinical History: Dyspnea. FINDINGS: There is no evidence for central or segmental pulmonary embolus. LAV stent material is noted. The hea rt, pericardium, and great vessels appear unremarkable. There is no evidence for thoracic lymph node enlargement. The lungs are free of significant opacity. Airway appears patent and of normal caliber. The visualized portions of the upper abdomen demonstrate no acute process. The osseous structures dem onstrate no concerning lytic or blastic lesions. IMPRESSION: No evidence for central or segmental pulmonary embolus. POS: IMTIAZ
[2018-02-20] MEDS ORDERED: Ondansetron ODT 4 MG TAB SL PRN (15:22)
[2018-02-20] MEDS ORDERED: Acetaminophen 325 MG TAB PO PRN ×2 (15:22→15:29)
[2018-02-20] MEDS ORDERED: Ondansetron HCl/PF 4 MG/2 ML Vial IVP PRN (15:22)
[2018-02-20] MEDS ORDERED: Ondansetron ODT 4 MG TAB PO PRN (15:29)
[2018-02-20] MEDS ORDERED: Lactated Ringer's 1,000 ML IV SCH (15:30)
[2018-02-20 15:37] VITALS: BMI 37.3
[2018-02-20] MEDS ORDERED: Clopidogrel Bisulfate 300 MG TAB PO SCH (16:30)
[2018-02-20] MEDS ORDERED: Enoxaparin Sodium 120 MG/0.8 ML SYRINGE SC SCH (16:45)
[2018-02-20 16:48] LABS: CKMB 2.9 ng/mL (0-6.6)
[2018-02-20 16:50] LABS: Troponin I 1.027 ng/mL (< 0.028)
[2018-02-20 19:42] LABS: Critical Call Chem Troponin I RESULT DECREASING; Troponin I 0.964 ng/mL (< 0.028)
[2018-02-20] MEDS: Enoxaparin Sodium 120 MG/0.8 ML SYRINGE SC SCH (20:03)
--- NOTE | 2018-02-20 21:59 | CON ---
DATE OF CONSULTATION: 02/20/2018 REASON FOR CONSULTATION: Chest pain. PRIMARY BURRING MACHINE OPERATOR: Zhao Ellison M.D. HISTORY OF PRESENT ILLNESS: Mr. Paige is a very pleasant 52-year-old white gentleman who comes to the hospital for chest pain and shortness of breath. He was admitted just this last few days and was di agnosed with a non-STEMI. He underwent heart catheterization by Dr. Ellison and eventually [facility] placed a drug-eluting stent on his LAD. He was discharged home yesterday and comes back today, as he continues to feel shortness of breath and chest pain. On my evaluation, he tells me that he carr s had chest pain pretty much since before the stent was placed. After the stent, his pain may be imp roved a little bit, but it has continued since. The pain is worse when he takes a deep breath, but i t is there pretty much constantly. He was admitted for rule out. Initial troponin was 0.8, which is a little bit higher than what the troponin was when he was admitted last time and it has since incre ased to 1.02, which is more than 50% increased from the [facility] suggestive of this being an acute event. Currently, Mr. Paige's pain is much more tolerable. His C K-MB has been normal. PAST MEDICAL HISTORY: Coronary artery disease as above. PAST SURGICAL HISTORY: 1. Knee surgery. 2. Catheterization and stent placement as above. ALLERGIES: No known drug allergies. HOME MEDICATIONS: 1. Sublingual nitro. 2. Nicoderm CQ. 3. Metoprolol succinate 25 mg. 4. Plavix 75 mg a day. He has been taking this when he took it today and yesterday. 5. Atorvastatin 80 mg every day. 6. Aspirin 81 a day. SOCIAL HISTORY: Smokes a pack a day. FAMILY HISTORY: Positive for early coronary artery disease. REVIEW OF SYSTEMS: A 12-point review of systems was done and is all negative unless stated in the hi story of present illness. PHYSICAL EXAMINATION: VITAL SIGNS: Temperature 98.3, pulse 95, respiration rate 20, satting 94% on room air, blood pressur e 112/60. GENERAL: Awake, alert, oriented x3. No distress. HEENT: Normocephalic, atraumatic. NECK: Supple. LUNGS: Clear. CARDIOVASCULAR: S1, S2. No S3, S4. I do not hear any murmurs, no rubs. ABDOMEN: Soft, positive bowel sounds. EXTREMITIES: No edema. SKIN: Warm and dry. LABORATORY WORK: Reviewed. CBC unremarkable. Coags were normal. Chemistry were unremarkable excep t for a CK of 254. CK-MB was normal x3. Troponin was 0.89, 1.02, and 0.96. BNP of 42. Albumin of 4.6. EKG was reviewed. A CT angio of the chest was reviewed shows no evidence of pulmonary embolus. ASSESSMENT AND PLAN: 1. Chest pain: Certainly, if he were to have a thrombosed his LAD stent, he would be looking much s icker than he is at that time. He does not have any ST elevations on his EKG and his troponin is not significantly higher than what it was last time. My suspicion is some level of pericarditis from hi s myocardial infarction last few days. As his symptoms are worse with deep inspiration. Either way, we will make sure that the stent looks okay, we will plan on doing a heart catheterization. We spok e with him at length about the risks and benefits of this procedure. Risks including but not limited to stroke, DE, , bleeding, need for blood transfusion, limb loss, organ loss, allergic reaction to the contrast, although he has had it in last few days and today again without reaction so this is unlikely. 2. Renal dysfunction. Patient verbalized understanding of this and agrees to proceed. 3. Further recommendation per results of coronary angiogram. 4. Dr. Ellison for followup in the morning, his primary freelance recruiter.
[2018-02-20] MEDS ORDERED: Nitroglycerin 2% Ointment 1 INCH/1 GM Packet TOP SCH (22:00)
[2018-02-21] MEDS: Lactated Ringer's 1,000 ML IV SCH ×2 (00:03→08:11)
[2018-02-21] MEDS: Nitroglycerin 2% Ointment 1 INCH/1 GM Packet TOP SCH ×3 (00:03→13:23)
[2018-02-21] MEDS: Enoxaparin Sodium 120 MG/0.8 ML SYRINGE SC SCH (04:20)
--- NOTE | 2018-02-21 05:12 | PDOC.FM ---
- Subjective Subjective: Pt. states that he did well over night. He denies pain, sob, dyspnea, and abominal pain. He states that he does have some pain with deep breathing. He is concerned about when he can return to work. - Objective MAR Reviewed: Yes Vital Signs & Weight: Vital Signs (12 hours) Temp Pulse Resp BP Pulse Ox 02/21/18 04:15 97.9 F 78 18 110/55 L 93 L 02/20/18 23:58 97.9 F 83 15 120/62 92 L 02/20/18 20:01 98.3 F 95 20 02/20/18 19:10 98.3 F 95 20 112/60 95 Weight Weight 108.272 kg I&O: 02/19/18 02/20/18 02/21/18 06:59 06:59 06:59 Intake Total 360 Balance 360 Result Diagrams: 02/21/18 04:17 02/21/18 04:17 Phys Exam - Physical Examination Constitutional: NAD (resting) HEENT: PERRLA, moist MMs Neck: no JVD, full ROM some crackles on right side, improved from yesterday Cardiovascular: RRR, no significant murmur Gastrointestinal: soft, non-tender, no distention, positive bowel sounds Musculoskeletal: no edema, pulses present Neurological: normal sensation, moves all 4 limbs Psychiatric: normal affect, A&O x 3 Skin: normal turgor, cap refill <2 seconds Dx/Plan (1) NSTEMI (non-ST elevated myocardial infarction) Code(s): I21.4 - NON-ST ELEVATION (NSTEMI) MYOCARDIAL INFARCTION Status: Acute - Plan Plan: This is a 52 yo male with a PMH of stent placement 02/16/18 NSTEMI -With positive troponins 0.8, 0.9 and no EKG changes. CTA shows no signs of PE. Pt. has been started on therapeutic lovenox. Dr. Hernandez saw him yesterday and does not think the stent has thrombosed but that there may be a pericarditis. Either way, pt. will be cathed in order to determine if there is a need for other interventions. We will be looking to cardiology for recommendations. Work note -Will provide work note for pt. upon discharge Code: FULL Prophylaxis: none Family: none at bedside Disposition: home in 1-2 days
[2018-02-21 05:44] LABS: Band 1 % (5-11); Eosinophils 7 % (0-10); Hemoglobin 15.4 g/dL (14.0-18.0); Lymphocytes 31 % (21-51); MDiff Complete? YES; Mean Corpuscular HGB CONC 33.9 g/dL (32.0-36.0); Mean Corpuscular Hemoglobin 28.3 pg (27.0-31.0); Mean Corpuscular Volume 83.5 fL (78.0-98.0); Mean Platelet Volume 7.4 fL (7.4-10.4); Monocytes 4 % (0-10); Neutrophil 56 % (42-75); Platelet Count 243 thou/uL (130-400); RBC Distribution Width 13.6 % (11.5-14.5); Reactive Lymphocytes 1 % (0-10); Red Blood Cell (RBC) Count 5.45 mill/uL (4.70-6.10); White Blood Cell (WBC) Count 7.6 thou/uL (4.8-10.8)
[2018-02-21 05:52] LABS: ALT (SGPT) 29 U/L (8-55); AST (SGOT) 24 U/L (5-34); Albumin 4.1 g/dL (3.5-5.0); Alkaline Phosphatase 89 U/L (40-150); Anion Gap 16 mmol/L (10-20); BUN (Urea Nitrogen) 13 mg/dL (8.4-25.7); Bilirubin, Total 0.4 mg/dL (0.2-1.2); Calc. Creatinine Clearance 122 mL/min (70-130); Calcium 10.1 mg/dL (7.8-10.44); Carbon Dioxide 23 mmol/L (22-29); Chloride 105 mmol/L (98-107); Estimated GFR-MDRD 71; Globulin 3.2 g/dL (2.4-3.5); Glucose 98 mg/dL (70-105); Potassium 4.2 mmol/L (3.5-5.1); Protein, Total 7.3 g/dL (6.0-8.3); Sodium 140 mmol/L (136-145)
[2018-02-21] MEDS ORDERED: Nicotine 14 MG PATCH TD SCH (06:00)
[2018-02-21] MEDS ORDERED: Atorvastatin Calcium 40 MG TAB PO SCH (09:00)
[2018-02-21] MEDS ORDERED: Clopidogrel Bisulfate 75 MG TAB PO SCH ×2 (09:00)
[2018-02-21] MEDS ORDERED: Ketorolac Tromethamine 30 MG/ML VIAL ONE (11:24)
[2018-02-21 11:38] VITALS: BP 132/58; TEMP 97.8
[2018-02-21] MEDS ORDERED: ALPRAZolam 0.25 MG TAB PO SCH ×2 (12:00→21:00)
--- NOTE | 2018-02-21 12:25 | ADD-PRG ---
This is an addendum to the note of Dr. Francis Bangura. Mr. Paige has been seen by Cardiology. Dr. Ellison feels the patient's chest discomfort is likely du e to pericarditis and feels the patient can likely be discharged on an NSAID and to continue his othe r medical therapy for CAD. This morning, Mr. Paige is awake, alert, in no distress. He says the ches t discomfort he has been having is not like his "heart attack pain." He is anxious to go home. We w ill have a final discussion with Dr. Ellison and proceed based on his recommendations.
[2018-02-21] MEDS ORDERED: Ibuprofen 600 MG TAB PO SCH (14:00)
--- NOTE | 2018-02-22 03:19 | DIS-2 ---
DATE OF ADMISSION: 02/20/2018 DATE OF DISCHARGE: 02/21/2018 RESIDENT: Francis Bangura DO ADMITTING ATTENDING: Dr. Rhodes. DISCHARGE ATTENDING: Dr. Jaffe. CONSULTATIONS: Cardiology, Dr. Hernandez and Dr. Ellison. PROCEDURES: Chest x-ray: Cardiomegaly, a finding suggestive of congestive heart failure. CTA chest with no evidence for central or segmental pulmonary embolus, echocardiogram ejection fraction shows EF of 55-60% with no significant findings of pericardial effusion. PRIMARY DIAGNOSIS: Atypical chest pain, likely due to pericarditis. SECONDARY DIAGNOSIS: Coronary artery disease with stent placement on 2017. DISCHARGE MEDICATIONS: Naproxen 250 mg p.o. q.8 hours p.r.n. pain. DISCONTINUED MEDICATIONS: None. HOSPITAL COURSE: This is a 52-year-old male who was discharged on 02/19/2018 after successful PCI placement of drug-eluting stent, [id number] LAD that was 90% occluded. States began having chest pain around 11:00 a.m. on the day of admission. He stated the pain was 3/10 and constant without radiation. Nothing made the pain better or worse. He was at rest at time of pain onset in the ED, he received nitro which relieved his pain. Cardiology was consulted. Dr. Hernandez saw the patient suggested consulting Dr. Ellison who was his primary sales property manager, Dr. Ellison states that he is not suspicious of re- thrombus of the LAD where the stent was placed rather this was suggestive of pericarditis sequela of his recent STEMI and stent placement. The patient was discharged on naproxen and told to follow up if the pain worsened and naproxen did not control the pain. LABORATORY DATA: Pertinent labs include troponin of 0.89 and 0.96. DISPOSITION: Stable. DISCHARGE INSTRUCTIONS: 1. Disposition: Home. 2. Diet: Cardiac healthy diet. 3. Activity: At cardiopulmonary limits. 4. Followup: Follow up with primary care physician in 1-2 weeks. JAILENE
[2018-02-22] MEDS ORDERED: Aspirin 81 mg Enteric Coated Tablet PO SCH (09:00)
== END 2018-02-21 14:05 | disposition home or self-care (01) ==
LOC: ERS 12:15 → 2SW 15:22
PROVIDERS: ADMIT Family Medicine; ATTEND Family Medicine
DX: R07.89 Other chest pain (principal); I25.10 Atherosclerotic heart disease of native coronary artery without angina pectoris; I21.4 Non-ST elevation (NSTEMI) myocardial infarction; Z79.82 Long term (current) use of aspirin; Z79.02 Long term (current) use of antithrombotics/antiplatelets; Z79.899 Other long term (current) drug therapy; Z95.5 Presence of coronary angioplasty implant and graft
CPT/HCPCS: 36415; 71045; 71275; 80053; 82553; 83880; 84484; 85007; 85025; 85027; 85610; 85730; 93005; 93306; 94760; 96360; 96361; 96372; A4216; G0378; J1650; J1885

== ENCOUNTER 2019-07-20 20:04 | Emergency (ER) | payer SELFPAY ==
--- NOTE | 2019-07-20 20:27 | RAD ---
EXAM: Portable chest PROVIDED CLINICAL HISTORY: Chest pain COMPARISON: 02/20/2018 FINDINGS: Cardiac and mediastinal silhouette is within normal limits. No focal consolidation, pleural fluid or pneumothorax evident. IMPRESSION: No evidence for an acute cardiopulmonary process.
[2019-07-20 20:53] LABS: Mean Corpuscular HGB CONC 30.5 g/dL (32.0-36.0); Mean Corpuscular Hemoglobin 25.1 pg (27.0-31.0); Mean Corpuscular Volume 82.3 fL (78.0-98.0); Mean Platelet Volume 8.2 fL (7.4-10.4); Platelet Count 293 thou/uL (130-400); RBC Distribution Width 14.4 % (11.5-14.5); Red Blood Cell (RBC) Count 5.55 mill/uL (4.70-6.10); White Blood Cell (WBC) Count 9.3 thou/uL (4.8-10.8)
[2019-07-20 21:06] LABS: ALT (SGPT) 23 U/L (8-55); AST (SGOT) 21 U/L (5-34); Albumin 4.6 g/dL (3.5-5.0); Alkaline Phosphatase 108 U/L (40-110); Anion Gap 13 mmol/L (10-20); BUN (Urea Nitrogen) 10 mg/dL (8.4-25.7); Bilirubin, Total 0.3 mg/dL (0.2-1.2); CK (CPK) 389 U/L (30-200); Calc. Creatinine Clearance 0 mL/min (70-130); Calcium 9.7 mg/dL (7.8-10.44); Carbon Dioxide 27 mmol/L (22-29); Chloride 104 mmol/L (98-107); Estimated GFR-MDRD 65; Globulin 3.3 g/dL (2.4-3.5); Glucose 96 mg/dL (70-105); Potassium 4.4 mmol/L (3.5-5.1); Protein, Total 7.9 g/dL (6.0-8.3); Sodium 140 mmol/L (136-145)
[2019-07-20 21:16] LABS: Eosinophils 1 % (0-10); Lymphocytes 33 % (21-51); MDiff Complete? YES; Monocytes 5 % (0-10); Neutrophil 61 % (42-75); Platelet Morphology Comment Appears Adequate; RBC Morphology Normal
[2019-07-20] MEDS ORDERED: Ketorolac Tromethamine 60 MG/2 ML VIAL ONE (21:32)
--- NOTE | 2019-07-20 23:39 | ULT ---
EXAM: US Venous Doppler Rt Unilat PROVIDED CLINICAL HISTORY: Pain COMPARISON: None FINDINGS: Grayscale and color Doppler sonography with spectral analysis was performed of the right internal jug ular, subclavian, axillary, basilic, brachial, cephalic, radial and ulnar veins. The interrogated vessels demonstrate a normal sonographic appearance. IMPRESSION: No sonographic evidence for right lower extremity venous thrombosis.
== END 2019-07-21 00:16 | disposition home or self-care (01) ==
LOC: ERS 20:04
DX: M79.621 Pain in right upper arm (principal); I25.10 Atherosclerotic heart disease of native coronary artery without angina pectoris; I25.2 Old myocardial infarction; E78.5 Hyperlipidemia, unspecified; E78.00 Pure hypercholesterolemia, unspecified; F17.210 Nicotine dependence, cigarettes, uncomplicated
CPT/HCPCS: 36415; 71045; 80053; 82550; 84484; 85025; 93005; 96372; J1885

== ENCOUNTER 2019-08-17 14:20 | Emergency (ER) | payer SELFPAY ==
[~2019-08-17 14:20] MED LIST changes: -ISOVUE-370 76%-LOCM 1 ML ONE; +Iopamidol-370 76% 500 ML 1 ML ONE
[2019-08-17 14:49] LABS: #Eosinphils 0.1 thou/uL (0.0-0.7); #Monocytes 0.6 thou/uL (0.11-0.59); #Neutrophils 6.1 thou/uL (1.40-6.50); %Basophils 0.4 % (0.0-1.0); %Eosinophils 1.4 % (0.0-10.0); %Monocytes 7.1 % (0.0-10.0); %Neutrophils 69.1 % (42.0-75.0); Hemoglobin 15.8 g/dL (14.0-18.0); Mean Corpuscular HGB CONC 33.1 g/dL (32.0-36.0); Mean Corpuscular Hemoglobin 26.4 pg (27.0-31.0); Mean Corpuscular Volume 79.9 fL (78.0-98.0); Mean Platelet Volume 7.6 fL (7.4-10.4); Platelet Count 293 thou/uL (130-400); RBC Distribution Width 14.1 % (11.5-14.5); Red Blood Cell (RBC) Count 5.99 mill/uL (4.70-6.10); White Blood Cell (WBC) Count 8.9 thou/uL (4.8-10.8)
[2019-08-17 15:10] LABS: ALT (SGPT) 24 U/L (8-55); AST (SGOT) 21 U/L (5-34); Albumin 4.9 g/dL (3.5-5.0); Alkaline Phosphatase 98 U/L (40-110); Anion Gap 12 mmol/L (10-20); BUN (Urea Nitrogen) 13 mg/dL (8.4-25.7); Bilirubin, Total 0.3 mg/dL (0.2-1.2); CK (CPK) 455 U/L (30-200); Calc. Creatinine Clearance 0 mL/min (70-130); Calcium 9.9 mg/dL (7.8-10.44); Carbon Dioxide 25 mmol/L (22-29); Chloride 105 mmol/L (98-107); Estimated GFR-MDRD 69; Globulin 3.1 g/dL (2.4-3.5); Glucose 105 mg/dL (70-105); Potassium 3.9 mmol/L (3.5-5.1); Sodium 138 mmol/L (136-145)
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
== END 2019-08-17 15:38 | disposition home or self-care (01) ==
LOC: ERS 14:20
DX: S20.219A Contusion of unspecified front wall of thorax, initial encounter (principal); I25.10 Atherosclerotic heart disease of native coronary artery without angina pectoris; I25.2 Old myocardial infarction; E78.5 Hyperlipidemia, unspecified; E78.00 Pure hypercholesterolemia, unspecified; F17.210 Nicotine dependence, cigarettes, uncomplicated; Z95.5 Presence of coronary angioplasty implant and graft; V69.9XXA Occupant (driver) (passenger) of heavy transport vehicle injured in unspecified traffic accident, initial encounter
CPT/HCPCS: 36415; 71260; 74177; 80053; 82550; 84484; 85025; 93005; 94760; Q9967

== ENCOUNTER 2020-06-06 17:02 | Emergency (ER) | payer OTHER, SELFPAY | END 2020-06-06 18:56 | disposition home or self-care (01) | LOC: ERS 17:02 | DX: H60.93 Unspecified otitis externa, bilateral (principal); H66.93 Otitis media, unspecified, bilateral; E78.5 Hyperlipidemia, unspecified; E78.00 Pure hypercholesterolemia, unspecified; I25.10 Atherosclerotic heart disease of native coronary artery without angina pectoris; I25.2 Old myocardial infarction; F17.210 Nicotine dependence, cigarettes, uncomplicated | CPT/HCPCS: 99282 ==

== ENCOUNTER 2020-07-10 20:44 | Emergency (ER) | payer SELFPAY ==
[2020-07-10] MEDS ORDERED: Acetaminophen 500 MG TAB ONE (21:53)
[2020-07-10] MEDS ORDERED: Ibuprofen 800 MG TAB ONE (21:53)
[2020-07-10 22:20] LABS: #Basophils 0.1 thou/uL (0.0-0.2); #Eosinphils 0.1 thou/uL (0.0-0.7); #Lymphocytes 2.4 thou/uL (1.20-3.40); #Monocytes 0.9 thou/uL (0.11-0.59); #Neutrophils 11.2 thou/uL (1.40-6.50); %Basophils 0.6 % (0.0-1.0); %Eosinophils 0.9 % (0.0-10.0); %Lymphocytes 16.5 % (21.0-51.0); %Monocytes 6.3 % (0.0-10.0); %Neutrophils 75.7 % (42.0-75.0); Hemoglobin 14.2 g/dL (14.0-18.0); Mean Corpuscular HGB CONC 34.6 g/dL (32.0-36.0); Mean Corpuscular Hemoglobin 28.2 pg (27.0-31.0); Mean Corpuscular Volume 81.4 fL (78.0-98.0); Mean Platelet Volume 7.4 fL (7.4-10.4); Platelet Count 335 thou/uL (130-400); RBC Distribution Width 12.8 % (11.5-14.5); Red Blood Cell (RBC) Count 5.04 mill/uL (4.70-6.10); White Blood Cell (WBC) Count 14.8 thou/uL (4.8-10.8)
[2020-07-10 22:43] LABS: ALT (SGPT) 21 U/L (8-55); AST (SGOT) 20 U/L (5-34); Albumin 4.2 g/dL (3.5-5.0); Alkaline Phosphatase 94 U/L (40-110); Anion Gap 19 mmol/L (10-20); BUN (Urea Nitrogen) 14 mg/dL (8.4-25.7); Bilirubin, Total 0.2 mg/dL (0.2-1.2); Calc. Creatinine Clearance 0 mL/min (70-130); Calcium 9.1 mg/dL (7.8-10.44); Carbon Dioxide 20 mmol/L (22-29); Chloride 105 mmol/L (98-107); Globulin 3.4 g/dL (2.4-3.5); Glucose 115 mg/dL (70-105); Potassium 4.4 mmol/L (3.5-5.1); Protein, Total 7.6 g/dL (6.0-8.3); Sodium 140 mmol/L (136-145)
[2020-07-10] MEDS ORDERED: Piperacillin/Tazobactam 3.375 GM VIAL ONE (22:47)
[2020-07-10] MEDS ORDERED: Vancomycin 1 GM/200 ML BAG ONE (23:19)
--- NOTE | 2020-07-10 23:40 | CT ---
CT HEAD WITHOUT IV CONTRAST COMPARISON: None HISTORY: Mastoiditis. Right ear pain. TECHNIQUE: Axial CT imaging at 5 mm intervals from vertex through skull base without contrast FINDINGS: There is no evidence of an acute infarction, hemorrhage, mass effect, or midline shift. The ventricul ar system is normal in size, shape, and position. Skull base has a normal CT appearance. Visualized paranasal sinuses and mastoid air cells are clear. No mastoid effusion is seen. Osseous structures appear intact. IMPRESSION: 1. No acute intracranial abnormality demonstrated.
--- NOTE | 2020-07-10 23:44 | CT ---
EXAM: CT Facial Bones WO Con PROVIDED CLINICAL HISTORY: Mastoiditis. Right ear pain. COMPARISON: None FINDINGS: Mucous retention cysts and minimal mucosal thickening is seen in each maxillary antrum. Trace mucosal thickening is present the right sphenoid sinus. Remainder of the visualized paranasal sinuses are clear. A conchal bullosa is present in each middle nasal turbinate. There is mild deviation of the [place] nasal septum to the right. The mastoid air cells are clear. No mastoid effusion is seen. No opacification is seen in the middle ear cavity. There is no evidence of a fracture involving the facial bones. The temporomandibular joints are dee lly located Mild degenerative changes are seen in the visualized upper cervical spine. The orbits are symmetric in appearance bilaterally. IMPRESSION: 1. Minimal sinus disease. 2. Mastoid air cells are clear bilaterally. No mastoid effusions are present, and there is no opacifi cation seen in the middle ear cavities. 3. No acute findings.
[2020-07-11] MEDS ORDERED: Dexamethasone 4 MG TAB ONE (00:46)
[2020-07-11] MEDS ORDERED: Dexamethasone 10 MG/ML VIAL ONE (00:47)
== END 2020-07-11 00:59 | disposition home or self-care (01) ==
LOC: ERS 20:44
DX: H61.011 Acute perichondritis of right external ear (principal); I25.2 Old myocardial infarction; I25.10 Atherosclerotic heart disease of native coronary artery without angina pectoris; E78.5 Hyperlipidemia, unspecified; E78.00 Pure hypercholesterolemia, unspecified; F17.210 Nicotine dependence, cigarettes, uncomplicated
CPT/HCPCS: 36415; 70450; 70486; 80053; 85025; 86140; 87040; 96365; 96367; 96375; J1100; J2543; J3370; J8540

== ENCOUNTER 2021-04-11 07:13 | Emergency (ER) | payer SELFPAY ==
[2021-04-11] MEDS ORDERED: Ibuprofen 200 MG TAB ONE (07:42)
[2021-04-11] MEDS ORDERED: Ondansetron ODT 4 MG TAB ONE (07:42)
[2021-04-11 13:30] LABS: SARS-CoV-2 PCR by NAA DETECTED (NotDetected)
== END 2021-04-11 08:04 | disposition home or self-care (01) ==
LOC: ERS 07:13
DX: U07.1 COVID-19 (principal); I25.2 Old myocardial infarction; E78.5 Hyperlipidemia, unspecified; F17.210 Nicotine dependence, cigarettes, uncomplicated
CPT/HCPCS: 99283; Q0162; U0003; U0005

== ENCOUNTER 2021-04-15 18:38 | Emergency (ER) | payer SELFPAY ==
[2021-04-15] MEDS ORDERED: Ketorolac Tromethamine 30 MG/ML VIAL ONE (19:31)
[2021-04-15] MEDS ORDERED: Ondansetron PF 4 MG/2 ML Vial ONE (19:31)
[2021-04-15 19:57] LABS: #Lymphocytes 0.8 thou/uL (1.20-3.40); #Monocytes 0.3 thou/uL (0.11-0.59); #Neutrophils 4.3 thou/uL (1.40-6.50); %Basophils 0.9 % (0.0-1.0); %Eosinophils 0.5 % (0.0-10.0); %Lymphocytes 14.5 % (21.0-51.0); %Neutrophils 79.2 % (42.0-75.0); Hemoglobin 13.9 g/dL (14.0-18.0); Mean Corpuscular HGB CONC 32.9 g/dL (32.0-36.0); Mean Corpuscular Hemoglobin 26.3 pg (27.0-31.0); Mean Corpuscular Volume 79.7 fL (78.0-98.0); Platelet Count 221 thou/uL (130-400); RBC Distribution Width 14.8 % (11.5-14.5); Red Blood Cell (RBC) Count 5.29 mill/uL (4.70-6.10); White Blood Cell (WBC) Count 5.4 thou/uL (4.8-10.8)
[2021-04-15 20:16] LABS: ALT (SGPT) 31 U/L (8-55); AST (SGOT) 41 U/L (5-34); Albumin 3.9 g/dL (3.5-5.0); Alkaline Phosphatase 85 U/L (40-110); Anion Gap 14 mmol/L (10-20); BUN (Urea Nitrogen) 17 mg/dL (8.4-25.7); Bilirubin, Total 0.2 mg/dL (0.2-1.2); Calc. Creatinine Clearance 0 mL/min (70-130); Calcium 8.6 mg/dL (7.8-10.44); Carbon Dioxide 24 mmol/L (22-29); Chloride 105 mmol/L (98-107); Globulin 2.5 g/dL (2.4-3.5); Glucose 108 mg/dL (70-105); Potassium 4.6 mmol/L (3.5-5.1); Protein, Total 6.4 g/dL (6.0-8.3); Sodium 138 mmol/L (136-145)
== END 2021-04-15 22:19 | disposition home or self-care (01) ==
LOC: ERS 18:38
DX: U07.1 COVID-19 (principal); J12.82 Pneumonia due to coronavirus disease 2019; E78.5 Hyperlipidemia, unspecified; E78.00 Pure hypercholesterolemia, unspecified; I25.2 Old myocardial infarction; F17.210 Nicotine dependence, cigarettes, uncomplicated; I25.10 Atherosclerotic heart disease of native coronary artery without angina pectoris
CPT/HCPCS: 71045; 80053; 84484; 85025; 96374; 96375; J1885; J2405

== ENCOUNTER 2021-06-01 06:38 | Emergency (ER) | payer SELFPAY ==
[2021-06-01 07:21] LABS: #Basophils 0.1 thou/uL (0.0-0.2); #Eosinphils 0.1 thou/uL (0.0-0.7); #Lymphocytes 1.7 thou/uL (1.20-3.40); #Monocytes 0.6 thou/uL (0.11-0.59); #Neutrophils 4.9 thou/uL (1.40-6.50); %Basophils 0.9 % (0.0-1.0); %Eosinophils 1.6 % (0.0-10.0); %Lymphocytes 23.3 % (21.0-51.0); %Monocytes 7.6 % (0.0-10.0); %Neutrophils 66.6 % (42.0-75.0); Hemoglobin 14.7 g/dL (14.0-18.0); Mean Corpuscular HGB CONC 32.8 g/dL (32.0-36.0); Mean Corpuscular Hemoglobin 26.1 pg (27.0-31.0); Mean Corpuscular Volume 79.6 fL (78.0-98.0); Mean Platelet Volume 7.2 fL (7.4-10.4); Platelet Count 334 thou/uL (130-400); RBC Distribution Width 14.6 % (11.5-14.5); Red Blood Cell (RBC) Count 5.63 mill/uL (4.70-6.10); White Blood Cell (WBC) Count 7.4 thou/uL (4.8-10.8)
[2021-06-01 07:40] LABS: ALT (SGPT) 24 U/L (8-55); AST (SGOT) 22 U/L (5-34); Albumin 4.3 g/dL (3.5-5.0); Alkaline Phosphatase 99 U/L (40-110); Anion Gap 15 mmol/L (10-20); BUN (Urea Nitrogen) 10 mg/dL (8.4-25.7); Bilirubin, Total 0.4 mg/dL (0.2-1.2); Calc. Creatinine Clearance 0 mL/min (70-130); Carbon Dioxide 22 mmol/L (22-29); Chloride 105 mmol/L (98-107); Globulin 3.3 g/dL (2.4-3.5); Glucose 117 mg/dL (70-105); Lipase 17 U/L (8-78); Potassium 4.5 mmol/L (3.5-5.1); Protein, Total 7.6 g/dL (6.0-8.3); Sodium 137 mmol/L (136-145)
[2021-06-01 08:11] LABS: Bilirubin Negative (Negative); Blood, Urine Negative (Negative); Clarity Clear (Clear); Glucose, Urine (Dipstick) Normal (Negative); Ketone, Urine Negative (Negative); Leukocyte Negative Leu/uL (Negative); Nitrite Negative (Negative); Protein, Urine (Dipstick) Negative (Neg-Trace); pH, Urine 5.5 (5.0-9.0)
== END 2021-06-01 08:44 | disposition home or self-care (01) ==
LOC: ERS 06:38
DX: R53.1 Weakness (principal); R07.9 Chest pain, unspecified; I25.10 Atherosclerotic heart disease of native coronary artery without angina pectoris; I25.2 Old myocardial infarction; E78.5 Hyperlipidemia, unspecified; E78.00 Pure hypercholesterolemia, unspecified; F17.210 Nicotine dependence, cigarettes, uncomplicated
CPT/HCPCS: 36415; 71045; 80053; 81003; 82550; 83690; 83880; 84484; 85025; 93005

== ENCOUNTER 2022-08-19 14:20 | Emergency (ER) | payer SELFPAY ==
[~2022-08-19 14:20] MED LIST changes: +Iopamidol 370 76% 100 ML VIAL ONE; -Iopamidol-370 76% 500 ML 1 ML ONE
[2022-08-19] MEDS ORDERED: Aspirin Chewable 81 MG TAB ONE (14:54)
[2022-08-19] MEDS ORDERED: Nitroglycerin 0.4 MG TAB 1 EACH ONE (14:54)
[2022-08-19 15:02] LABS: #Eosinphils 0.1 thou/uL (0.0-0.7); #Lymphocytes 1.1 thou/uL (1.20-3.40); #Neutrophils 8.2 thou/uL (1.40-6.50); %Basophils 0.4 % (0.0-1.0); %Eosinophils 0.8 % (0.0-10.0); %Lymphocytes 10.8 % (21.0-51.0); %Monocytes 9.1 % (0.0-10.0); Actual Bicarbonate (HCO3v) 23 mEq/L (22-28); Analyzer IN Cardio ER; Base Excess -1.2 mEq/L (-2.0 to +3.0); Calcium, Ionized (venous) 1.15 mmol/L (1.16-1.32); Chloride (VBG) 106 mmol/L (98-106); Hemoglobin (Hb) 15.7 g/dL (13.1-17.2); Mean Corpuscular HGB CONC 33.2 g/dL (32.0-36.0); Mean Corpuscular Hemoglobin 26.1 pg (27.0-31.0); Mean Corpuscular Volume 78.5 fl (78.0-98.0); Mean Platelet Volume 7.5 fL (7.4-10.4); Platelet Count 250 10x3/uL (130-400); Potassium (VBG) 4.01 mmol/L (3.70-5.30); RBC Distribution Width 14.4 % (11.5-14.5); Red Blood Cell (RBC) Count 5.76 mill/uL (4.70-6.10); Sodium 136.6 mmol/L (133-146); White Blood Cell (WBC) Count 10.4 10x3/uL (4.8-10.8); pH (venous) 7.42 (7.32-7.43)
[2022-08-19] MEDS ORDERED: Cefepime 2 GM VIAL ONE (15:19)
[2022-08-19 15:27] LABS: ALT (SGPT) 22 U/L (8-55); AST (SGOT) 21 U/L (5-34); Albumin 3.8 g/dL (3.5-5.0); Alkaline Phosphatase 75 U/L (40-110); Anion Gap 14 mmol/L (10-20); BUN (Urea Nitrogen) 11 mg/dL (8.4-25.7); Bilirubin, Total 0.3 mg/dL (0.2-1.2); Calc. Creatinine Clearance 0 mL/min (70-130); Carbon Dioxide 21 mmol/L (22-29); Chloride 108 mmol/L (98-107); Estimated GFR 74; Globulin 2.5 g/dL (2.4-3.5); Glucose 109 mg/dL (70-105); Potassium 4.3 mmol/L (3.5-5.1); Protein, Total 6.3 g/dL (6.0-8.3); Sodium 139 mmol/L (136-145)
[2022-08-19 16:04] LABS: SARS-CoV-2 NAA Rapid Test DETECTED (NotDetected)
[2022-08-19 16:55] LABS: Bilirubin Negative (Negative); Blood, Urine Negative (Negative); Clarity Clear (Clear); Glucose, Urine (Dipstick) Normal (Negative); Ketone, Urine Negative (Negative); Leukocyte Negative Leu/uL (Negative); Nitrite Negative (Negative); Protein, Urine (Dipstick) Negative (Neg-Trace); Urobilinogen Normal mg/dL (Less than 2)
== END 2022-08-19 18:59 | disposition home or self-care (01) ==
LOC: ERS 14:20
DX: U07.1 COVID-19 (principal); E78.00 Pure hypercholesterolemia, unspecified; F17.210 Nicotine dependence, cigarettes, uncomplicated; Z20.822 Contact with and (suspected) exposure to COVID-19
CPT/HCPCS: 36415; 71045; 71275; 80053; 81003; 82805; 83605; 83880; 84484; 85025; 87040; 87086; 93005; 96365; 96366; J0692; Q9967

== ENCOUNTER 2022-10-18 17:21 | Emergency (ER) | payer SELFPAY | END 2022-10-18 18:45 | disposition home or self-care (01) | LOC: ERS 17:21 | DX: B37.9 Candidiasis, unspecified (principal); I25.10 Atherosclerotic heart disease of native coronary artery without angina pectoris; I10 Essential (primary) hypertension; E78.5 Hyperlipidemia, unspecified; F17.210 Nicotine dependence, cigarettes, uncomplicated | CPT/HCPCS: 99282 ==

== ENCOUNTER 2023-05-21 12:42 | Emergency (ER) | payer OTHER, SELFPAY | END 2023-05-21 14:34 | disposition home or self-care (01) | LOC: ERS 12:42 | DX: S39.012A Strain of muscle, fascia and tendon of lower back, initial encounter (principal); I25.10 Atherosclerotic heart disease of native coronary artery without angina pectoris; I10 Essential (primary) hypertension; E78.5 Hyperlipidemia, unspecified; F17.210 Nicotine dependence, cigarettes, uncomplicated; V89.2XXA Person injured in unspecified motor-vehicle accident, traffic, initial encounter | CPT/HCPCS: 99283 ==

== ENCOUNTER 2023-12-24 20:53 | Emergency (ER) | payer OTHER, SELFPAY ==
[2023-12-24 22:15] LABS: #Basophils 0.04 10x3/uL (0.0-0.2); %Basophils 0.6 % (0.0-1.0); %Eosinophils 2.2 % (0.0-10.0); %Lymphocytes 27.8 % (21.0-51.0); %Monocytes 9.9 % (0.0-10.0); %Neutrophils 59.4 % (42.0-75.0); Hemoglobin 14.5 g/dL (14.0-18.0); Mean Corpuscular Hemoglobin 26.7 pg (27.0-31.0); Mean Corpuscular Volume 80.9 fL (78.0-98.0); Mean Platelet Volume 9.2 fL (7.4-10.4); Platelet Count 295 10x3/uL (130-400); Red Blood Cell (RBC) Count 5.44 mill/uL (4.70-6.10)
[2023-12-24 22:47] LABS: Troponin I 0.015 ng/mL (< 0.028)
[2023-12-24 22:53] LABS: ALT (SGPT) 22 U/L (8-55); AST (SGOT) 22 U/L (5-34); Albumin 3.4 g/dL (3.5-5.0); Alkaline Phosphatase 77 U/L (40-110); Anion Gap 14 mmol/L (10-20); BUN (Urea Nitrogen) 11 mg/dL (8.4-25.7); Bilirubin, Total 0.3 mg/dL (0.2-1.2); Calc. Creatinine Clearance 0 mL/min (70-130); Calcium 9.4 mg/dL (7.8-10.44); Carbon Dioxide 22 mmol/L (22-29); Chloride 111 mmol/L (98-107); Estimated GFR 75; Globulin 2.8 g/dL (2.4-3.5); Glucose 143 mg/dL (70-105); Magnesium 1.9 mg/dL (1.6-2.6); Potassium 3.7 mmol/L (3.5-5.1); Protein, Total 6.2 g/dL (6.0-8.3); Sodium 143 mmol/L (136-145)
== END 2023-12-24 23:57 | disposition home or self-care (01) ==
LOC: ERS 20:53
DX: R60.0 Localized edema (principal); I45.10 Unspecified right bundle-branch block; I10 Essential (primary) hypertension; I25.10 Atherosclerotic heart disease of native coronary artery without angina pectoris; E78.5 Hyperlipidemia, unspecified; I25.2 Old myocardial infarction; F17.290 Nicotine dependence, other tobacco product, uncomplicated; Z95.5 Presence of coronary angioplasty implant and graft
CPT/HCPCS: 36415; 71045; 80053; 83735; 83880; 84484; 85025; 93005; 93970

== ENCOUNTER 2024-07-18 13:54 | Emergency (ER) | payer SELFPAY ==
[2024-07-18] MEDS ORDERED: Ketorolac Tromethamine 30 MG (1 mL) VIAL ONE (15:11)
== END 2024-07-18 16:11 | disposition home or self-care (01) ==
LOC: ERS 13:54
DX: M25.571 Pain in right ankle and joints of right foot (principal); I10 Essential (primary) hypertension; I25.10 Atherosclerotic heart disease of native coronary artery without angina pectoris; I25.2 Old myocardial infarction; E78.5 Hyperlipidemia, unspecified; Z87.891 Personal history of nicotine dependence; Z95.5 Presence of coronary angioplasty implant and graft
CPT/HCPCS: 96372; 99283; J1885